=== PATIENT | male | born 1980 | race Caucasian/White ===

== ENCOUNTER 2016-12-06 14:55 | Inpatient (IN) ==
[2016-12-06] MEDS ORDERED: *HR* LORazepam 2 MG/ML VIAL ONE (15:00)
[2016-12-06] MEDS ORDERED: *HR* LORazepam 2 MG/ML VIAL IM ONE (15:01)
[2016-12-06 15:23] LABS: Basophils # 0.1 K/mcL (0.0-0.2); Basophils % 0.2 %; Hematocrit 45.5 % (37.5-50.1); Hemoglobin 15.4 g/dL (12.9-16.9); Immature Granulocytes % 1.3 % (0-4); Lymphocytes # 1.3 K/mcL (0.6-4.6); Lymphocytes % 6.3 %; Mean Corpuscular HGB Conc 33.8 g/dL (31.6-35.5); Mean Corpuscular Hemoglobin 32.2 pg (28.0-33.3); Mean Platelet Volume 7.7 fL (9.4-12.4); Monocytes # 1.2 K/mcL (0.0-1.3); Monocytes % 5.8 %; Neutrophils # 17.9 K/mcL (1.6-8.9); Platelet Count 293 K/mcL (140-400); Red Blood Count 4.79 M/mcL (4.19-5.50); Segmented Neutrophils % 86.4 %
[2016-12-06] MEDS ORDERED: levETIRAcetam 1,000 MG in 0.9 % Sodium Chloride 100 ML IVPB ONE (15:24)
[2016-12-06] MEDS ORDERED: *HR* LORazepam 2 MG/ML VIAL IVP ONE (15:27)
[2016-12-06 15:36] LABS: BUN/Creatinine Ratio 12 (6-26); Blood Urea Nitrogen 11 mg/dL (8-26); Calcium 9.7 mg/dL (8.6-10.8); Carbon Dioxide 13 mEq/L (19-29); Chloride 110 mEq/L (98-109); Glucose 125 mg/dL (70-99); Osmolality,Calculated 293 (280-300); Potassium 4.3 mEq/L (3.5-4.5); Sodium 141 mEq/L (136-145); eGFR For African Americans > 60 (> 60); eGFR For Non-African Americans > 60 (> 60)
[2016-12-06 15:44] LABS: Amphetamine Screen,Urine Negative ng/mL (Cutoff=1000); Barbiturate Screen,Urine Negative ng/mL (Cutoff=200); Benzodiazepines Screen,Urine Negative ng/mL (Cutoff=200); Cannabinoid Screen,Urine Positive ng/mL (Cutoff = 50); Cocaine Screen,Urine Negative ng/mL (Cutoff= 300); Opiate Screen,Urine Negative ng/mL (Cutoff=300); Phencyclidine Screen,Urine Negative ng/mL (Cutoff=25)
[2016-12-06 16:00] LABS: Bilirubin,Urine Negative (Negative); Blood,Urine Trace (Negative); Clarity,Urine Clear (Clear); Color,Urine Yellow (Yellow); Glucose,Urine (UA) Normal (Normal); Ketones,Urine Negative (Negative); Leukocyte Esterase,Urine Negative (Negative); Nitrite,Urine Negative (Negative); PH,Urine 5.5 pH Units (5.0-8.0); Protein,Urine 100 mg/dL (Neg-Trace); Specific Gravity,Urine 1.017 (1.010-1.025); Urobilinogen,Urine Normal (Normal)
[2016-12-06 16:04] LABS: Bacteria,Urine None Seen per hpf (None-Few); Hyaline Casts,Urine Moderate per lpf (None-Few); Squamous Epithelial Cell,Urine Many per lpf (None-Few); WBC,Urine 0-3 per hpf (0-3)
[2016-12-06] MEDS ORDERED: Phenytoin 1,000 MG in SYRINGE 1 EACH IVPB ONE (17:22)
[2016-12-06] MEDS ORDERED: *HR* HYDROcodone/Acet 5/325 mg TABLET PO PRN (18:05)
[2016-12-06] MEDS ORDERED: Naloxone 0.4 MG/ML INJ IVP PRN (18:05)
[2016-12-06] MEDS ORDERED: Ondansetron 4 MG/2 ML VIAL IVP PRN (18:05)
[2016-12-06] MEDS ORDERED: Acetaminophen 325 MG TABLET PO PRN (18:05)
[2016-12-06] MEDS ORDERED: *HR* Morphine 2 MG/ML SYRINGE IVP PRN (18:05)
[2016-12-06] MEDS ORDERED: *HR* LORazepam 2 MG/ML VIAL IVP PRN (18:09)
[2016-12-06] MEDS ORDERED: 0.9 % Sodium Chloride 1,000 ML IVC ONE (18:13)
--- NOTE | 2016-12-06 18:15 | Emergency Department Note ---
Disposition Clinical Impression: Epileptic seizure, Seizure disorder Disposition: Admitted As Inpatient Condition: Fair Referrals: NO,PCP [Primary Care Provider] - Forms: ED Satisfaction Letter Time of Disposition: 18:21 Seizure HPI - General Chief Complaint: ED Seizure Stated Complaint: seizure/combative Time Seen by Provider: 12/06/16 15:03 Source: EMS Limitations: altered mental status Nursing Notes Reviewed: Yes Vital Signs Reviewed: Yes - History of Present Illness HPI Narrative: 36-year-old male presents to the emergency room for seizure. Unknown exactly what happened at home but gwen was called to the house for seizure. The gwen says that they have a lot of runs to his house for seizure activity. He has a known seizure disorder. He usually is combative during his post ictal state. He was brought to the ER. Upon arrival, patient had had another tonic-clonic type seizure. He was given 2 mg of IM Ativan. It is unknown at the patient has been compliant with his medications. He follows with a local neurologist. He also has a history of alcohol use and drug abuse in the past. Limited history at this time due to the patient being postictal and then having a seizure in the ER. 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 Description of Episode: loss of consciousness, tonic-clonic movement Duration of Episode: 5 (min ) -: minutes(s) Witnessed: yes - by bystander Associated trauma secondary to event: No Seizure History: known seizure disorder Place: home Treatments prior to arrival: none - Related Data Previous Rx's Medication Instructions Recorded Diazepam [Valium] 5 mg PO BID #10 tablet 08/26/15 Acetaminophen [Tylenol] 325 mg PO Q6HR PRN #10 tablet 05/24/16 Amoxicillin 875 mg PO BID #20 tablet 05/24/16 Allergies Allergy/AdvReac Type Severity Reaction Status Date / Time No Known Allergies Allergy Verified 08/26/15 19:47 Limitations: ROS unobtainable due to patients medical condition (Patient is postictal and having seizures in the ER.) Past Medical History - Past Medical History Medical history: Reports: hypertension, seizures Surgical history: Reports: orthopedic, other Psychiatric history: Reports: anxiety - Social History Smoking Status: Current every day smoker Smokeless Tobacco Status: No Alcohol use: Reports: occasionally Drug use: Reports: marijuana Physical Exam - General Limitations: altered mental status General appearance: lethargic - Head Head exam: atraumatic, normocephalic - Eye Eye exam: Present: normal appearance, PERRL - ENT ENT exam: other (Patient has some secretions noted in his mouth.) - Neck Neck exam: Present: normal inspection - Chest Chest inspection: Present: normal inspection, symmetric chest wall rise - Respiratory Respiratory exam: Present: normal lung sounds bilaterally, respiratory distress - Cardiovascular Cardiovascular exam: Present: normal rhythm, tachycardia - Abdominal Exam Abdominal exam: Present: soft. Absent: distention, guarding - Extremities Exam Extremities exam: Present: normal inspection - Neurological Exam Neurological exam: Present: other (Patient postictal. Patient then had a tonic- clonic seizure during exam. Full upper and lower extremity tonic-clonic movements and foaming at the mouth.) - Psychiatric Psychiatric exam: Present: other (Postictal state) - Skin Skin exam: Present: warm, dry Course Course Narrative: Patient seen upon arrival. He was given 2 mg of IM Ativan to help stop his seizure upon arrival. Patient then had another full tonic clonic seizure lasting 3-5 minutes and witnessed by the ER staff. His vitals remained stable during this period he was given another 2 mg of IV Ativan. I then loaded him with [address] of the brain was negative. He did have an elevated white count which is likely secondary to his seizures. Patient has a known seizure disorder. He has a known history of status epilepticus as well. I spoke with his neurologist. He was okay with admitting the patient to the hospitalist service here. He also was given a gram of Dilantin. Vitals are stable now. He has not had any further seizures since the medications Vital Signs Temperature 99.6 F 12/06/16 14:56 Pulse Rate 111 12/06/16 14:56 Respiratory Rate 26 12/06/16 14:56 Blood Pressure 0/0 12/06/16 14:56 O2 Sat by Pulse Oximetry 97 12/06/16 14:56 Temperature 99.6 F 12/06/16 14:56 Pulse Rate 111 12/06/16 17:56 Respiratory Rate 18 12/06/16 17:56 Blood Pressure 129/83 12/06/16 17:56 O2 Sat by Pulse Oximetry 95 12/06/16 17:56 Oxygen Delivery Oxygen Delivery Room Air Seizure - MDM Narrative Medical decision making narrative: Consultation spent with the hospitalist as well as the neurologist. Patient was given Keppra as well as Dilantin. No further seizure activity. He is stable for the floor. - Medical Records Medical records reviewed: Yes I reviewed the patient's medical records. - Lab Data Lab results reviewed: Yes I reviewed the patient's lab results. Result diagrams: 12/06/16 15:13 12/06/16 15:13 Lab Results 12/06/16 12/06/16 12/06/16 Range/Units 15:08 15:13 15:13 WBC 20.7 H (4.3-11.1) K/mcL RBC 4.79 (4.19-5.50) M/mcL Hgb 15.4 (12.9-16.9) g/dL Hct 45.5 (37.5-50.1) % MCV 95.0 (83.0-100.0) fL MCH 32.2 (28.0-33.3) pg MCHC 33.8 (31.6-35.5) g/dL RDW 13.0 (11.5-14.5) % Plt Count 293 (140-400) K/mcL MPV 7.7 L (9.4-12.4) fL Immature Gran % 1.3 (0-4) % Seg Neutrophils % 86.4 % Lymphocytes % 6.3 % Monocytes % 5.8 % Eosinophils % 0.0 % Basophils % 0.2 % Neutrophils # 17.9 H (1.6-8.9) K/mcL Lymphocytes # 1.3 (0.6-4.6) K/mcL Monocytes # 1.2 (0.0-1.3) K/mcL Eosinophils # 0.0 (0.0-0.6) K/mcL Basophils # 0.1 (0.0-0.2) K/mcL Sodium 141 (136-145) mEq/L Potassium 4.3 (3.5-4.5) mEq/L Chloride 110 H (98-109) mEq/L Carbon Dioxide 13 L (19-29) mEq/L BUN 11 (8-26) mg/dL Creatinine 0.90 (0.72-1.25) mg/dL Est GFR ( Amer) > 60 (> 60) Est GFR (Non-Af Amer) > 60 (> 60) BUN/Creatinine Ratio 12 (6-26) Glucose 125 H (70-99) mg/dL POC Glucose 133 H (58-89) Calculated Osmolality 293 (280-300) Calcium 9.7 (8.6-10.8) mg/dL Urine Color (Yellow) Urine Clarity (Clear) Urine pH (5.0-8.0) pH Units Ur Specific Collins (1.010-1.025) Urine Protein (Neg-Trace) mg/dL Urine Glucose (UA) (Normal) mg/dL Urine Ketones (Negative) mg/dL Urine Blood (Negative) Urine Nitrite (Negative) Urine Bilirubin (Negative) Urine Urobilinogen (Normal) mg/dL Ur Leukocyte Esterase (Negative) Urine Microscopic RBC (0-3) per hpf Urine Microscopic WBC (0-3) per hpf Ur Squamous Epith Cells (None-Few) per lpf Urine Bacteria (None-Few) per hpf Hyaline Casts (None-Few) per lpf Ur Culture Indicated? (NO) Urine Opiates Screen (Vdlzte=836) ng/mL Ur Barbiturates Screen (Bsouje=601) ng/mL Ur Phencyclidine Scrn (Cutoff=25) ng/mL Ur Amphetamines Screen (Dpqiow=0488) ng/mL U Benzodiazepines Scrn (Bgncyi=141) ng/mL Urine Cocaine Screen (Cutoff= 300) ng/mL U Marijuana (THC) Screen (Cutoff = 50) ng/mL Ethyl Alcohol (0-10) mg/dL 12/06/16 12/06/16 12/06/16 Range/Units 15:20 15:52 16:45 WBC (4.3-11.1) K/mcL RBC (4.19-5.50) M/mcL Hgb (12.9-16.9) g/dL Hct (37.5-50.1) % MCV (83.0-100.0) fL MCH (28.0-33.3) pg MCHC (31.6-35.5) g/dL RDW (11.5-14.5) % Plt Count (140-400) K/mcL MPV (9.4-12.4) fL Immature Gran % (0-4) % Seg Neutrophils % % Lymphocytes % % Monocytes % % Eosinophils % % Basophils % % Neutrophils # (1.6-8.9) K/mcL Lymphocytes # (0.6-4.6) K/mcL Monocytes # (0.0-1.3) K/mcL Eosinophils # (0.0-0.6) K/mcL Basophils # (0.0-0.2) K/mcL Sodium (136-145) mEq/L Potassium (3.5-4.5) mEq/L Chloride (98-109) mEq/L Carbon Dioxide (19-29) mEq/L BUN (8-26) mg/dL Creatinine (0.72-1.25) mg/dL Est GFR ( Amer) (> 60) Est GFR (Non-Af Amer) (> 60) BUN/Creatinine Ratio (6-26) Glucose (70-99) mg/dL POC Glucose (58-89) Calculated Osmolality (280-300) Calcium (8.6-10.8) mg/dL Urine Color Yellow (Yellow) Urine Clarity Clear (Clear) Urine pH 5.5 (5.0-8.0) pH Units Ur Specific Collins 1.017 (1.010-1.025) Urine Protein 100 H (Neg-Trace) mg/dL Urine Glucose (UA) Normal (Normal) mg/dL Urine Ketones Negative (Negative) mg/dL Urine Blood Trace H (Negative) Urine Nitrite Negative (Negative) Urine Bilirubin Negative (Negative) Urine Urobilinogen Normal (Normal) mg/dL Ur Leukocyte Esterase Negative (Negative) Urine Microscopic RBC 3-5 H (0-3) per hpf Urine Microscopic WBC 0-3 (0-3) per hpf Ur Squamous Epith Cells Many H (None-Few) per lpf Urine Bacteria None Seen (None-Few) per hpf Hyaline Casts Moderate H (None-Few) per lpf Ur Culture Indicated? NO (NO) Urine Opiates Screen Negative (Tmsllb=365) ng/mL Ur Barbiturates Screen Negative (Bhlane=248) ng/mL Ur Phencyclidine Scrn Negative (Cutoff=25) ng/mL Ur Amphetamines Screen Negative (Futbly=4452) ng/mL U Benzodiazepines Scrn Negative (Zzxwcq=119) ng/mL Urine Cocaine Screen Negative (Cutoff= 300) ng/mL U Marijuana (THC) Screen Positive H (Cutoff = 50) ng/mL Ethyl Alcohol < 10 (0-10) mg/dL - Radiology Data Radiology results reviewed: Yes I reviewed the patient's radiology results.
[2016-12-06] MEDS ORDERED: diazePAM 2 MG TABLET PO PRN (20:06)
--- NOTE | 2016-12-06 20:15 | Internal Med History&Physical ---
Date of Encounter: 12/06/16 Time of Encounter: 18:25 Assessment and Plan (1) Epileptic seizure Current visit: Yes Status: Acute Patient has been seizure-free since admission Patient at risk of further seizures with status epilepticus Neurology consult Obtain EEG Neuro checks Breakthrough seizures could be multi-factorial from non-compliance with medications, or benzodiazepine withdrawal as patient is on benzos for anxiety but his urine is negative for benzodiazepines. IVF hydration for AGMA Leukocytosis possibly due to recent seizure Patient may need a lumbar puncture if his mental status does not return to baseline, and or if he develops a fever Close monitoring Qualifiers: Epilepsy type: unspecified Intractability: not intractable Status epilepticus: without status epilepticus Qualified Code(s): G40.909 - Epilepsy , unspecified, not intractable, without status epilepticus (2) Anxiety disorder Current visit: Yes Status: Acute Resume home meds Qualifiers: Anxiety disorder type: unspecified anxiety disorder Qualified Code(s): F41.9 - Anxiety disorder, unspecified (3) Hypertension Current visit: Yes Status: Chronic Resume home meds Qualifiers: Hypertension type: essential hypertension Qualified Code(s): I10 - Essential (primary) hypertension (4) Marijuana abuse Current visit: Yes Status: Chronic Encourage cessation Internal Medicine - H&P: HPI Chief complaint: Seizures Admitted From: Home Plans for Post Hospital Care: Home History of present illness: Mr. Son is a 36 year old male with medical history of seizure disorder, anxiety disorder, hypertension, hyperlipidemia, marijuana use. Patient presents by EMS to the ER with a history of weakness seizure 2. He had 2 more seizures in the ER, eventually responded to 3 doses of Ativan. Patient is seen at bedside, he is currently disoriented, sleeping but arousable , and somewhat postictal. Physical exam is unremarkable. Vital signs are stable except for tachycardia, he is able to move all extremities equally, he speaks in full sentences however he is not aware of why he is here. He is oriented to person only. No speech deficits. Chest is clear to auscultation bilaterally, heart sounds S1 and S2 on the tachycardia sinus tachycardia, abdomen is benign lower extremity edemas. Labs and imaging reviewed Leukocytosis with left shift, hemoglobin is stable, chemistry with anion gap metabolic acidosis, hyperglycemia, urine toxicology positive for marijuana, no benzodiazepine in urine toxicology even though patient is on benzodiazepines at home. Urine analysis with hematuria and proteinuria. Chest x-ray no acute findings, Head CT no acute intracranial abnormality. Patient has received Dilantin and Keppra in the ER. Past Med Surg Social Fam HX - Past Medical History Medical history: hypertension, seizures Psychiatric history: anxiety - Past Surgical History Surgical History: orthopedic, other - Social History Smoking Status: Current every day smoker Smokeless Tobacco Status: No Alcohol use: occasionally Drug use: marijuana Internal Medicine - H&P: Meds CarBAMazepine [Tegretol] 200 mg PO QAM 12/06/16 [History] CarBAMazepine [Tegretol] 400 mg PO QPM 12/06/16 [History] Diazepam [Valium] 2 mg PO DAILY PRN 12/06/16 [History] Lamotrigine [Lamictal] 200 mg PO QAM 12/06/16 [History] Lamotrigine [Lamictal] 300 mg PO HS 12/06/16 [History] LevETIRAcetam [Keppra] 1,500 mg PO Q12H 12/06/16 [History] Lisinopril/Hydrochlorothiazide [Zestoretic 20-12.5 mg Tablet] 1 tab PO DAILY [History] Simvastatin [Zocor] 40 mg PO HS 12/06/16 [History] Tiagabine [Gabitril] 4 mg PO BID 12/06/16 [History] Allergies No Known Allergies Allergy (Verified 08/26/15 19:47) ROS unobtainable: due to mental status All Systems PM: A 10-system review of systems was performed and is negative for pertinent findings except as documented above in the HPI. - Constitutional Vitals: Temp Pulse Resp BP Pulse Ox 99.6 F 111 16 132/80 95 12/06/16 14:56 12/06/16 17:56 12/06/16 18:56 12/06/16 18:56 12/06/16 17:56 Internal Med - H&P Results - Labs CBC & Chem 7: 12/06/16 15:13 12/06/16 15:13
[2016-12-06] MEDS: levETIRAcetam 250 MG TABLET PO SCH (20:57)
[2016-12-06] MEDS ORDERED: lamoTRIgine 100 MG TABLET PO SCH (21:00)
[2016-12-07 05:22] LABS: Basophils % 0.2 %; Hematocrit 39.7 % (37.5-50.1); Immature Granulocytes % 0.5 % (0-4); Lymphocytes # 1.7 K/mcL (0.6-4.6); Lymphocytes % 15.5 %; Mean Corpuscular HGB Conc 34.5 g/dL (31.6-35.5); Mean Corpuscular Hemoglobin 32.2 pg (28.0-33.3); Mean Corpuscular Volume 93.2 fL (83.0-100.0); Mean Platelet Volume 7.8 fL (9.4-12.4); Monocytes # 1.1 K/mcL (0.0-1.3); Monocytes % 10.1 %; Platelet Count 257 K/mcL (140-400); Red Blood Count 4.26 M/mcL (4.19-5.50); Segmented Neutrophils % 73.7 %
[2016-12-07 05:28] LABS: Hemoglobin 13.7 g/dL (12.9-16.9)
[2016-12-07 05:47] LABS: BUN/Creatinine Ratio 12 (6-26); Blood Urea Nitrogen 9 mg/dL (8-26); Carbon Dioxide 18 mEq/L (19-29); Chloride 108 mEq/L (98-109); Glucose 103 mg/dL (70-99); Osmolality,Calculated 287 (280-300); Potassium 3.7 mEq/L (3.5-4.5); Sodium 139 mEq/L (136-145); eGFR For African Americans > 60 (> 60); eGFR For Non-African Americans > 60 (> 60)
[2016-12-07] MEDS ORDERED: *HR* Enoxaparin 40 MG/0.4 ML SYRINGE SQ SCH (06:00)
[2016-12-07] MEDS ORDERED: levETIRAcetam 250 MG TABLET PO SCH (06:00)
[2016-12-07] MEDS: levETIRAcetam 250 MG TABLET PO SCH (08:23)
[2016-12-07] MEDS ORDERED: Lisinopril-HCTZ 20-12.5mg TABLET PO SCH (09:00)
[2016-12-07] MEDS ORDERED: carBAMazepine 200 MG TABLET PO SCH ×2 (09:00→18:00)
[2016-12-07] MEDS ORDERED: lamoTRIgine 100 MG TABLET PO SCH (09:00)
--- NOTE | 2016-12-07 09:30 | EEG/EMG/Oth Biometrics Report ---
EEG Procedure Report Date of procedure: 12/07/16 EEG Procedure: Routine EEG Procedure Note: This EEG was acquired with standard international 1020 system with EKG recording. The background EEG activity replaced by low amplitude fast activity. The background activity was reactive to eye openings. Sleep stages were characterized by the presence of background fragmentation, vertex waves, K complexes, and sleep spindles. There are no electrographic seizures identified during this tracing. There are no epileptiform discharges and focal slowing noted during this recording. Photic stimulation produced no abnormalities. Hyperventilation procedure was not performed EKG tracing showed no significant cardiac dysrhythmia. Impression: This is essentially a normal awake and asleep EEG. Clinical Correlation: Normal EEGs, however, do not exclude epilepsy. Clinical correlation advised.
[2016-12-07 10:29] VITALS: BP 147/71
--- NOTE | 2016-12-07 12:18 | Neurology - Consult Note ---
Date of Encounter: 12/07/16 Time of Encounter: 12:15 Assessment and Plan (1) Localization-related (focal) (partial) idiopathic epilepsy and epileptic syndromes with seizures of localized onset, intractable, with status epilepticus Current Visit: Yes Status: Acute Patient with known history of intractable epilepsy with intermittent breakthrough seizures, on multiple antiepileptic agents. has had few breakthrough seizures yesterday but now is full awake back to baseline. Has had history of status epilepticus in the past. Will add on Dilantin 300mg qhs and continue all other home medications. Will like to see him in neurology clinic in 1-2 weeks to check phenytoin level. Okay to discharge home today History of Present Illness Chief complaint: seizures HPI: Mr. Son is a 36 year old male with intractable epilepsy, known to me who developed multiple seizures at home and brought to ER by squad. In ER, patient was seen still seizing and was given valium and Versed and after that the seizure stopped He was sedated and then admitted onto medical floor for further treatment. Has had known intractable seizures and has been on Keppra, lamotrigine, Tegretol, recently gabitril ( just started on low dose) and still has frequent breakthrough seizures, at times few in a row. No significant other provoking factors other than intermittent drinking Past Med Surg Social Fam HX - Past Medical History Medical history: hyperlipidemia, hypertension, seizures Psychiatric history: anxiety - Past Surgical History Surgical History: orthopedic, other - Social History Smoking Status: Current every day smoker Smokeless Tobacco Status: No Alcohol use: occasionally Drug use: marijuana - Family History Father History Unknown: Yes Medications and Allergies CarBAMazepine [Tegretol] 200 mg PO QAM 12/06/16 [History] CarBAMazepine [Tegretol] 400 mg PO QPM 12/06/16 [History] Diazepam [Valium] 2 mg PO DAILY PRN 12/06/16 [History] Lamotrigine [Lamictal] 200 mg PO QAM 12/06/16 [History] Lamotrigine [Lamictal] 300 mg PO HS 12/06/16 [History] LevETIRAcetam [Keppra] 1,500 mg PO Q12H 12/06/16 [History] Lisinopril/Hydrochlorothiazide [Zestoretic 20-12.5 mg Tablet] 1 tab PO DAILY [History] Simvastatin [Zocor] 40 mg PO HS 12/06/16 [History] Tiagabine [Gabitril] 4 mg PO BID 12/06/16 [History] Allergies No Known Allergies Allergy (Verified 08/26/15 19:47) All Systems: A 10-system review of systems was performed and is negative for pertinent findings except as documented above in the HPI. Physical Examination - Vital Signs Vital Signs: Initial Vital Signs Temp Pulse Resp BP Pulse Ox 99.6 F 111 26 0/0 97 12/06/16 14:56 12/06/16 14:56 12/06/16 14:56 12/06/16 14:56 12/06/16 14:56 - Constitutional General appearance: comfortable - Neurologic Sensorimotor examination: intact Detailed motor examination: grossly full strength in all extremities Motor examination - right side: 5/5: deltoids, biceps, triceps, wrist flexion, wrist extension, contestant coordinator, hip flexors, tibialis Anterior, quadriceps, toe extension (EHL), plantarflexion Motor examination - left side: 5/5: deltoids, biceps, triceps, wrist flexion, wrist extension, hip flexors, contestant coordinator, quadriceps, tibialis Anterior, toe extension (EHL), plantarflexion Detailed sensory examination: intact Posture: other Reflex and gait examination: intact Reflexes: Biceps: 1+, Triceps: 1+, Brachioradialis: 1+, Patella: 1+, Achilles: 1 + Mental Status Examination: awake, alert, oriented to person, oriented to place, oriented to time, follows commands appropriately, answers questions appropriately, no agnosia, no aphasia, no aproxia Cranial nerve examination: PERRL, EOMI, visual zepeda intact, corneal reflexes brisk symmetrically, sensory to face intact, mastication intact, no facial asymmetry is present, no dysarthria, hearing is intact symmetrically, soft palate elevates bilaterally upon phonation, gag reflex intact, flexes SCM and trapezius muscles symmetrically with full power, tongue protrudes midline, no atrophy or facial fasiculations present Cerebellar examination: no dysmetria, performs finger to nose and heel to goss symmetrically without ataxia, no gait ataxia, no truncal ataxia, no difficulty with rapid alternating movements Results - Laboratory Findings CBC and BMP: 12/07/16 04:54 12/07/16 04:54 Abnormal lab findings: Abnormal lab results MPV 7.8 fL (9.4-12.4) L 12/07/16 04:54 Carbon Dioxide 18 mEq/L (19-29) L 12/07/16 04:54 Glucose 103 mg/dL (70-99) H 12/07/16 04:54 POC Glucose 133 (58-89) H 12/06/16 15:08 Urine Protein 100 mg/dL (Neg-Trace) H 12/06/16 15:52 Urine Blood Trace (Negative) H 12/06/16 15:52 Urine Microscopic RBC 3-5 per hpf (0-3) H 12/06/16 15:52 Ur Squamous Epith Cells Many per lpf (None-Few) H 12/06/16 15:52 Hyaline Casts Moderate per lpf (None-Few) H 12/06/16 15:52 U Marijuana (THC) Screen Positive ng/mL (Cutoff = 50) H 12/06/16 15:20 Consult Discharge Plan - Plan Referrals: Sanjiv Fernandez [Non-Partnered Physician] - 12/19/16 8:00 am
--- NOTE | 2016-12-07 13:31 | Discharge Summary ---
Date of Encounter: 12/07/16 Time of Encounter: 13:26 - Discharge Diagnosis (1) Epileptic seizure Priority: Primary Status: Acute Qualifiers: Epilepsy type: unspecified Intractability: not intractable Status epilepticus: without status epilepticus Qualified Code(s): G40.909 - Epilepsy , unspecified, not intractable, without status epilepticus (2) Hypertension Priority: Secondary Status: Chronic Qualifiers: Hypertension type: essential hypertension Qualified Code(s): I10 - Essential (primary) hypertension (3) Marijuana abuse Priority: Secondary Status: Chronic - Discharge Medications Prescriptions: Phenytoin ER [Dilantin ER] 300 mg PO HS #30 capsule Home Medications: CarBAMazepine [Tegretol] 200 mg PO QAM 12/06/16 [History] CarBAMazepine [Tegretol] 400 mg PO QPM 12/06/16 [History] Diazepam [Valium] 2 mg PO DAILY PRN 12/06/16 [History] Lamotrigine [Lamictal] 200 mg PO QAM 12/06/16 [History] Lamotrigine [Lamictal] 300 mg PO HS 12/06/16 [History] LevETIRAcetam [Keppra] 1,500 mg PO Q12H 12/06/16 [History] Lisinopril/Hydrochlorothiazide [Zestoretic 20-12.5 mg Tablet] 1 tab PO DAILY [History] Simvastatin [Zocor] 40 mg PO HS 12/06/16 [History] Tiagabine [Gabitril] 4 mg PO BID 12/06/16 [History] Phenytoin ER [Dilantin ER] 300 mg PO HS #30 capsule 12/07/16 [Rx] Allergies/Adverse Reactions: Allergies No Known Allergies Allergy (Verified 08/26/15 19:47) Date of admission: 12/06/16 18:28 Primary care physician: PCP NO Consults: 12/07/16 10:05 Consult to Interpret Exam [CONS] Routine Consulting Provider: Frankie Romero Consult to Interpret Exam: Interpret EEG 12/07/16 13:03 Consult to Ic Engineer [CONS] Stat Reason for SW Consult: d/c today, pt has no ride home, may need cab voucher. [place] Discharging clinician: Charles Kowalski Anticipated date of discharge: 12/07/16 - Patient Status Disposition: Home, Self-Care Condition: Fair Functional capacity at discharge: independent ambulation Overall status at discharge: patient is back to baseline - Discharge Instructions Follow Up With: Sanjiv Fernandez [Non-Partnered Physician] - 12/19/16 8:00 am Frankie Romero MD [Partnered Physician] - 12/15/16 11:30 am - Diet and Activity Activity: resume usual activities as tolerated Diet: advance to your usual diet Interval History: Mr. Son is a 36 year old male with medical history of seizure disorder, anxiety disorder, hypertension, hyperlipidemia, marijuana use. Patient presents by EMS to the ER with a history of weakness seizure 2. He had 2 more seizures in the ER, eventually responded to 3 doses of Ativan. Patient is seen at bedside, he is currently disoriented, sleeping but arousable , and somewhat postictal. Physical exam is unremarkable. Vital signs are stable except for tachycardia, he is able to move all extremities equally, he speaks in full sentences however he is not aware of why he is here. He is oriented to person only. No speech deficits. Chest is clear to auscultation bilaterally, heart sounds S1 and S2 on the tachycardia sinus tachycardia, abdomen is benign lower extremity edemas. Labs and imaging reviewed Leukocytosis with left shift, hemoglobin is stable, chemistry with anion gap metabolic acidosis, hyperglycemia, urine toxicology positive for marijuana, no benzodiazepine in urine toxicology even though patient is on benzodiazepines at home. Urine analysis with hematuria and proteinuria. Chest x-ray no acute findings, Head CT no acute intracranial abnormality. Patient has received Dilantin and Keppra in the ER. Hospital course: he was admitted for observation for breakthrough seizures. neurology was consulted. he was strated on dilantin 300mg hs as per neurology recommendation, vishnuly at baseline he has had no further episodes of seizures in the hospital. he is being discharged in stable condition. he will follow with neurology in 1-2 weeks. Time spent discussing smoking cessation with patient: more than 10 minutes - Time Spent with Patient Total time spent providing and/or coordinating discharge services: Greater than 30 minutes - Constitutional Vitals: Temp Pulse Resp BP Pulse Ox 98.2 F 78 17 147/71 96 12/07/16 10:12/07/16 10:12/07/16 10:12/07/16 10:17 10:26 General appearance: Present: A&O X 3 Exam: neck- supple chest- b/l clear,no added sounds CVS-s1 and s2, no mr//g abd-soft,non tender, bs are present ext- no edema neuro- alert and awake, no focal defecits.
== END 2016-12-07 15:15 | disposition home or self-care (01) | DRG 53 ==
LOC: EMEROO 14:55 → 3ANU 18:28
PROVIDERS: ADMIT Internal Medicine; ATTEND Internal Medicine

== ENCOUNTER 2020-12-19 13:04 | Observation (INO) ==
[2020-12-19 13:45] LABS: Basophils % 0.4 %; Hematocrit 43.3 % (37.5-50.1); Hemoglobin 14.7 g/dL (12.9-16.9); Immature Granulocytes % 0.3 % (0-4); Lymphocytes % 27.7 %; Mean Corpuscular HGB Conc 33.9 g/dL (31.6-35.5); Mean Corpuscular Hemoglobin 32.5 pg (28.0-33.3); Mean Corpuscular Volume 95.6 fL (83.0-100.0); Monocytes # 1.2 K/mcL (0.0-1.3); Monocytes % 11.4 %; Neutrophils # 6.4 K/mcL (1.6-8.9); Platelet Count 269 K/mcL (140-400); Red Blood Count 4.53 M/mcL (4.19-5.50); Red Cell Distribution Width 13.1 % (11.5-14.5); Segmented Neutrophils % 60.2 %; White Blood Count 10.7 K/mcL (4.3-11.1)
[2020-12-19 13:57] LABS: BUN/Creatinine Ratio 19 (6-26); Blood Urea Nitrogen 14 mg/dL (6-20); Carbon Dioxide 22 mEq/L (23-29); Chloride 99 mEq/L (98-107); Glucose 92 mg/dL (70-105); Osmolality,Calculated 280 (280-300); Potassium 3.9 mEq/L (3.5-5.1); Sodium 135 mEq/L (136-145); eGFR For African Americans > 60 (> 60); eGFR For Non-African Americans > 60 (> 60)
[2020-12-19] MEDS ORDERED: Aspirin 81 MG TAB.CHEW PO STA (14:23)
[2020-12-19] MEDS ORDERED: Ondansetron 4 MG/2 ML VIAL IVP PRN (15:57)
[2020-12-19] MEDS ORDERED: Naloxone 0.4 MG/ML INJ IVP PRN (15:57)
[2020-12-19] MEDS: Nicotine 14 MG PATCH.TD24 TD SCH (16:22)
[2020-12-19] MEDS ORDERED: FYCOMPA 8 MG PO SCH (21:00)
[2020-12-19] MEDS ORDERED: levETIRAcetam 250 MG TABLET PO SCH (22:00)
[2020-12-19] MEDS: lamoTRIgine 100 MG TABLET PO SCH (22:14)
[2020-12-20 00:15] LABS: Hematocrit 39.5 % (37.5-50.1); Hemoglobin 13.6 g/dL (12.9-16.9); Mean Corpuscular HGB Conc 34.4 g/dL (31.6-35.5); Mean Corpuscular Volume 95.9 fL (83.0-100.0); Mean Platelet Volume 7.8 fL (9.4-12.4); Platelet Count 238 K/mcL (140-400); Red Blood Count 4.12 M/mcL (4.19-5.50); Red Cell Distribution Width 13.1 % (11.5-14.5); White Blood Count 7.1 K/mcL (4.3-11.1)
[2020-12-20 00:39] LABS: BUN/Creatinine Ratio 27 (6-26); Blood Urea Nitrogen 16 mg/dL (6-20); Calcium 9.1 mg/dL (8.6-10.3); Carbon Dioxide 26 mEq/L (23-29); Chloride 100 mEq/L (98-107); Chol/HDL Ratio 3.7 (0-4.9); Cholesterol 183 mg/dL (< 200); Glucose 122 mg/dL (70-105); HDL Cholesterol 49 mg/dL (40-59); LDL Cholesterol,Calculated 76 mg/dL (< 100); Magnesium 2.1 mg/dL (1.6-2.6); Osmolality,Calculated 280 (280-300); Potassium 3.5 mEq/L (3.5-5.1); Sodium 134 mEq/L (136-145); Triglycerides 289 mg/dL (< 150); eGFR For African Americans > 60 (> 60); eGFR For Non-African Americans > 60 (> 60)
[2020-12-20 07:27] LABS: Estimated Average Glucose 126 mg/dl
[2020-12-20] MEDS ORDERED: Perflutren Lipid Microsphere 1.3 ML in 0.9 % Sodium Chloride 8.7 ML IVP PRN (08:03)
[2020-12-20] MEDS ORDERED: Aspirin 81 MG TAB.CHEW PO SCH (09:00)
[2020-12-20] MEDS ORDERED: Lisinopril-HCTZ 20-12.5mg TABLET PO SCH (09:00)
[2020-12-20] MEDS: lamoTRIgine 100 MG TABLET PO SCH (09:05)
[2020-12-20] MEDS: Nicotine 14 MG PATCH.TD24 TD SCH (09:06)
[2020-12-20] MEDS ORDERED: levETIRAcetam 250 MG TABLET PO SCH (10:00)
[2020-12-20 15:17] VITALS: BP 110/72
== END 2020-12-20 18:04 | disposition home or self-care (01) ==
LOC: 3BNU 13:04 → EMEROOARM 13:04 → 3BNU 16:12
PROVIDERS: ADMIT Student in an Organized Health Care Education/Training Program; ATTEND Student in an Organized Health Care Education/Training Program